=== PATIENT | male | born 1995 | race Caucasian/White ===

== ENCOUNTER 2018-07-16 09:55 | Emergency (ER) | payer OTHER ==
--- NOTE | 2018-07-16 10:14 | UC ---
Laceration HPI - HPI Summary HPI Summary: Patient states he lacerated finger left index while harvesting grapes with clippers this morning. Last Tdap was in June of 2010. He was bandaged on the spot and came to shortly after that. Denies dizziness or nausea now but states he nearly fainted when it happened. Denies previous medical history besides depression which is controlled with prozac 40mg po daily. States he has been in the area for about a month to come to college and he does not have a primary care - History Of Current Complaint Chief Complaint: UCLaceration Stated Complaint: FINGER LACERATION Time Seen by Provider: 07/16/18 10:08 Hx Obtained From: Patient Laceration Location: Finger Mechanism Of Injury: Sharp Trauma Onset/Duration: Sudden Onset, Lasting Hours Pain Intensity: 5 Aggravating Factors: Nothing Hands: 1 - semicircular wound on tuft of left index finger 0.5 cm in diameter - Allergies/Home Medications Allergies/Adverse Reactions: Allergies Allergy/AdvReac Type Severity Reaction Status Date / Time cefazolin Allergy unk Verified 07/16/18 10:06 Home Medications: Home Medications FLUoxetine* [Prozac*] 40 mg PO DAILY 07/16/18 [History Confirmed 07/16/18] PMH/Surg Hx/FS Hx/Imm Hx - Additional Past Medical History Additional PMH: depression Previously Healthy: Yes Psychological History: Depression - Surgical History Surgical History: Yes Surgery Procedure, Year, and Place: hemmeroidectomy - Family History Known Family History: Positive: Hypertension, Diabetes - Social History Alcohol Use: Occasionally Substance Use Type: Marijuana Smoking Status (MU): Never Smoked Tobacco Review of Systems Constitutional: Negative Skin: Other - laceration left index All Other Systems Reviewed And Are Negative: Yes Physical Exam Triage Information Reviewed: Yes Appearance: Well-Appearing, No Pain Distress, Well-Nourished Vital Signs: Initial Vital Signs Temp 98 F 07/16/18 10:02 Pulse 72 07/16/18 10:02 Resp 16 07/16/18 10:02 BP 127/73 07/16/18 10:02 Pulse Ox 100 09/29/18 10:02 Vital Signs Reviewed: Yes Eyes: Positive: Conjunctiva Clear ENT: Positive: Hearing grossly normal, Uvula midline Neck: Positive: Supple, Nontender Respiratory: Positive: Chest non-tender Cardiovascular: Positive: Pulses Normal, Brisk Capillary Refill Abdomen Description: Positive: Nontender Musculoskeletal Exam: Normal Neurological Exam: Normal Skin Exam: Other - semicircular superficial wound on lateral tuft of left index finger approximately 0.5 cm in diameter, no active bleeding. Capillary refill is brisk, radial and ulnar pulses present Laceration Repair - Laceration Repair 1 Description: Linear Laceration Size After Repair: Length (cm) - 0.5 cm in diameter, semicircular Modified For Repair: No Cleansing Completed Via Routine Prep: Yes Irrigation With Pressure Irrigation Device: No Closure Material: Skin Adhesive Closure Method: Single Layer Suture Of: Skin Laceration Course/Dx - Course/Dx Course Of Treatment: laceration repaired with dermabond , patient tolerated procedure well, follow up with PCP - Differential Dx - Laceration/Wound Provider Diagnoses: laceration left index finger Discharge - Sign-Out/Discharge Documenting (check all that apply): Patient Departure All imaging exams completed and their final reports reviewed: No Studies - Discharge Plan Condition: Stable Disposition: HOME Patient Education Materials: Skin Adhesive Care (ED), Laceration (ED) Referrals: No Primary Care Phys,NOPCP [Primary Care Provider] - [facility] [Outside] - Billing Disposition and Condition Condition: STABLE Disposition: Home Images Hands: 1 - semicircular superficial wound on radial aspect tuft of left index finger approximately 0.5 cm in diameter, no active bleeding. Capillary refill is brisk , radial and ulnar pulses present
[2018-07-16 10:22] VITALS: BP 127/73
== END 2018-07-16 10:42 | disposition home or self-care (01) ==
LOC: UCEAST 09:55
DX: S61.211A Laceration without foreign body of left index finger without damage to nail, initial encounter (principal); W27.1XXA Contact with garden tool, initial encounter; Y93.89 Activity, other specified; Y92.9 Unspecified place or not applicable
CPT/HCPCS: 12001; 99201; G0463